=== PATIENT | female | born 1995 | race Caucasian/White ===

== ENCOUNTER 2018-01-08 18:49 | Emergency (ER) | payer OTHER ==
[2018-01-08 19:49] VITALS: BP 125/92
--- NOTE | 2018-01-08 20:38 | UC ---
Muna Small Julia, scribed for Lane Momin MD on 01/08/18 at 2030 . General HPI - HPI Summary HPI Summary: This patient is a 22 year old F presenting to [facility] with a chief complaint of waxing and waning cough and chest congestion for the past two weeks. Patient reports sore throat, rhinorrhea, ears popping, currently resolved wheezing, and vertigo with initial symptoms. Patient denies consistent body aches. The patient rates the pain 2/10 in severity. Patient returned from [place] 12/20/17. - History of Current Complaint Chief Complaint: UCRespiratory Stated Complaint: URI Time Seen by Provider: 01/08/18 20:22 Hx Obtained From: Patient Hx Last Menstrual Period: 12/10/17 Onset/Duration: Lasting Weeks Timing: Constant - waxing waning Pain Intensity: 2 Pain Location at: throat Character: sore Associated Signs & Symptoms: Positive: Other - cough, chest congestion, sore throat, rhinorrhea, ears popping, currently resolved wheezing, and vertigo with initial symptoms - Allergy/Home Medications Allergies/Adverse Reactions: Allergies Allergy/AdvReac Type Severity Reaction Status Date / Time MS Bee Venom [Bee Venom] Allergy Unknown Verified 01/08/18 19:49 Reaction Details MS Shellfish Allergy Allergy Unknown Verified 01/08/18 19:49 [Shellfish Allergy] Reaction Details PMH/Surg Hx/FS Hx/Imm Hx Previously Healthy: Yes - Surgical History Surgical History: None - Family History Known Family History: Positive: Diabetes - Social History Alcohol Use: Occasionally Substance Use Type: None Smoking Status (MU): Never Smoked Tobacco Review of Systems ENT: Sore Throat, Ear Ache - "popping" Respiratory: Cough, Other - chest congestion currently resolved wheezing Neurological: Other - vertigo initially All Other Systems Reviewed And Are Negative: Yes Physical Exam Triage Information Reviewed: Yes Vital Signs: Initial Vital Signs Temp 99.3 F 01/08/18 19:46 Pulse 109 01/08/18 19:46 Resp 18 01/08/18 19:46 BP 125/92 01/08/18 19:46 Pulse Ox 100 01/08/18 19:46 Vital Signs Reviewed: Yes - Additional Comments General: well-appearing, no pain distress Skin: warm, color reflects adequate perfusion, dry Head: normal Eyes: EOMI, CHARLI ENT: TM normal, rhinorrhea, mild posterior pharynx erythema Neck: supple, nontender Respiratory: CTA, breath sounds present Cardiovascular: Regular rhythm, tachycardia Abdomen: soft, nontender Bowel: present Musculoskeletal: normal, strength/ROM intact Neurological: normal, sensory/motor intact, A&O x3 Psychological: affect/mood appropriate Course/Dx - Differential Dx - Multi-Symptom Provider Diagnoses: SINUSITIS Discharge - Discharge Plan Condition: Stable Disposition: HOME Prescriptions: Amoxicillin/Clavulanate TAB* [Augmentin TAB 875*] 875 mg PO BID #20 tab Patient Education Materials: Sinusitis (ED) Referrals: [facility] [Provider Group] No Primary Care Phys,[facility] [Primary Care Provider] - Additional Instructions: FOLLOW UP WITH [facility]. GET RECHECKED FOR ANY WORSENING OF YOUR CONDITION OR QUESTIONS OR CONCERNS. The documentation as recorded by the Muna preciado Julia accurately reflects the service I personally performed and the decisions made by me, Lane Momin MD.
== END 2018-01-08 20:43 | disposition home or self-care (01) ==
LOC: UCEAST 18:49
DX: J32.9 Chronic sinusitis, unspecified (principal); Z91.030 Bee allergy status; Z91.013 Allergy to seafood
CPT/HCPCS: 99212; G0463